=== PATIENT | female | born 1955 | race Caucasian/White ===

== ENCOUNTER 2019-11-02 17:14 | Emergency (ER) | payer MEDICARE, OTHER, SELFPAY ==
[2019-11-02 17:26] VITALS: BP 142/106; PULSE 72; RESP 18; TEMP 36.5; O2SAT 96; BMI 32.9
--- NOTE | 2019-11-02 17:38 | W.ED.ABDPA2 ---
HPI - Abdominal Pain General: Chief Complaint: Abdominal Pain Stated Complaint: ABD PAIN Time Seen by Provider: 11/02/19 17:35 History of Present Illness: Associated Symptoms: Denies chills, constipation, diarrhea, dysuria, fever(s), hematochezia, hematuria, nausea and vomiting Review of Systems Const: Denies: fever(s), chills or fatigue Eyes: Denies: change in vision or eye discomfort ENMT: Denies: throat pain, odynophagia, nasal discharge or nasal congestion Card: Denies: chest pain, palpitations, edema, swelling of feet/ankles, dyspnea on exertion or orthopnea Resp: Denies: dyspnea, productive cough or non-productive cough GI: Denies: abdominal pain, nausea, vomiting, diarrhea, constipation or hematochezia : Denies: flank pain, dysuria or hematuria Musc: Denies: neck pain, back pain or extremity swelling Skin/Breast: Denies: rash or new lesions Neuro: Denies: headache(s), numbness in extremities or weakness in extremities Physical Exam Const: COMMON NORMALS: patient oriented x3 HENMT: COMMON NORMALS: normocephalic HEAD & SCALP: normocephalic MOUTH: Normal oral and palatal mucosa present THROAT: posterior oropharynx normal and uvula midline Neck/C-Spine: COMMON NORMALS: supple GENERAL: Yes normal visual inspection Resp: COMMON NORMALS: normal respiratory effort, No retractions, No use of accessory muscles and clear to auscultation bilaterally AUSCULTATION: clear to auscultation bilaterally Cardio: COMMON NORMALS: regular rate, regular rhythm, S1 normal heart sound present, S2 normal heart sound present, No gallops present (Cardio), No clicks present (Cardio), No murmurs present (Cardio) and Peripheral pulses 2+ throughout RATE: regular rate RHYTHM: regular rhythm HEART SOUNDS: S1 normal heart sound present and S2 normal heart sound present PERIPHERAL PULSES: Peripheral pulses 2+ throughout GI: COMMON NORMALS: Normal to inspection, nondistended, normoactive bowel sounds present, Soft to palpation, non-tender and no masses PALPATION: Yes Soft to palpation : COMMON NORMALS: Yes no CVA tenderness BLADDER/KIDNEY EXAM: Yes no CVA tenderness Back/Pelvis: COMMON NORMALS: no CVA tenderness Neuro: COMMON NORMALS: patient oriented x3 GAIT: Yes Normal gait present Course Vital Signs: Vital signs: Vital Signs Temperature 97.7 F 11/02/19 17:26 Pulse Rate 72 11/02/19 17:26 Respiratory Rate 18 11/02/19 17:26 Blood Pressure 142/106 11/02/19 17:26 Pulse Oximetry 96 11/02/19 17:26 Coding Level of Care Code ED Child And Family Services Worker for Juhi Velez
[2019-11-02 17:50] VITALS: BP 125/91; PULSE 68; RESP 18; O2SAT 95
[2019-11-02 17:50] LABS: Add Urine Microscopic? NO
[2019-11-02 17:54] LABS: Basophils # 0.1 10^3/uL (0.0-0.1); Basophils % 0.8 %; Eosinophils # 0.1 10^3/uL (0.0-0.8); Eosinophils % 1.2 %; Hematocrit 43.4 % (37.0-47.0); Hemoglobin 13.7 g/dL (11.5-15.3); Lymphocytes # 2.5 10^3/uL (0.8-4.8); Lymphocytes % 29.4 %; Mean Corpuscular HGB Conc 31.6 g/dL (30.0-36.0); Mean Corpuscular Volume 91.8 fL (81-99); Monocytes # 0.6 10^3/uL (0.2-0.9); Monocytes % 7.1 %; Neutrophils # 5.14 10^3/uL (1.8-7.7); Neutrophils % 61.1 %; Nucleated Red Blood Cells % 0 %; Platelet Count 325 10^3/cmm (130-400); Red Blood Count 4.73 10^6/uL (4.1-5.3); Red Cell Distribution Width 12.5 % (12.1-15.1); White Blood Count 8.4 10^3/uL (4.0-10.0)
[2019-11-02 18:04] LABS: Alanine Aminotransferase 15 U/L (0-33); Albumin Level 4.5 g/dL (3.5-5.2); Alkaline Phosphatase 76 IU/L (35-105); Aspartate Amino Transferase 27 U/L (0-32); Blood Urea Nitrogen 15 mg/dL (8-23); Calcium 9.6 mg/dL (8.5-10.5); Carbon Dioxide 23 mmol/L (22-29); Chloride 102 mmol/L (98-107); Globulin 3.1 g/dL (1.3-4.6); Glucose 86 mg/dL (65-115); Lipase 43 U/L (13-60); Osmolality Calculated 278 mOsm/kg (285-295); Sodium 136 mmol/L (136-145); Total Bilirubin 0.4 mg/dL (0.15-1.2); Total Protein 7.6 g/dL (6.6-8.7)
--- NOTE | 2019-11-02 18:04 | US_ITS ---
WS: [id number] EXAM: RIGHT UPPER QUADRANT ULTRASOUND DATE OF EXAMINATION: 11/02/2019, 1850 hours COMPARISON: None. HISTORY: 64 years old with right upper quadrant abdominal pain. FINDINGS: Visualized pancreas is normal in appearance. Upper abdominal aorta is normal in caliber. Liver echotexture is normal without evidence of mass lesion. Liver is not appreciably enlarged. Carolyn l venous flow is demonstrated by color flow and spectral Doppler with flow toward the liver. The gallbladder lumen is poorly visualized. Appears to be full of stones. No definite wall thickening . Common bile duct diameter is estimated at 11 mm in maximum transverse caliber. Considered dilated. No definite stone is seen within the visualized portions of the common bile duct but considered abnorma l for this age of patient. Imaging of the abdomen with the CT recommended for further delineation for possible common bile duct stone. The right kidney is estimated at 9.3 x 4.8 x 4.1 cm in size. Cortical thickness and echotexture are n ormal. No mass or obstructive uropathy is seen. US/US gall bladder [id number] IMPRESSION: Gallbladder appears to be full of stones. Dilated common bile duct 11 mm in tra nsverse caliber. No stone within the duct seen within the limits of the examina tion but the distal common bile duct not visualized. CT of the abdomen recommen ded to evaluate for possible common bile duct stone.
--- NOTE | 2019-11-02 18:06 | W.ED.ABDPA2 ---
HPI - Abdominal Pain General: Chief Complaint: Abdominal Pain Stated Complaint: ABD PAIN Time Seen by Provider: 11/02/19 17:35 Source: patient Mode of arrival: ambulatory Limitations: no limitations History of Present Illness: HPI narrative: Dennise is a 64-year-old female who states she has had abdominal pain over the last 2 days. She states in her right upper quadrant is sharp in nature. It is worse with movement. She states improved with rest. Her pain is currently a 7 out of 10. She denies any fevers. Denies any vomiting. MD elicited complaint: abdominal pain Pertinent past history: none Onset (ago): day(s) Pain Consistency: constant Location: RUQ Severity: moderate Quality: stabbing Exacerbating factors: movement Relieving factors: rest Associated Symptoms: Denies chills, dysuria and fever(s) Review of Systems Const: Denies: fever(s), chills, body aches or change in appetite Eyes: Denies: blurry vision or eye discomfort ENMT: Denies: throat pain or dental pain Card: Denies: chest pain Resp: Denies: dyspnea GI: Reports: abdominal pain : Denies: dysuria Musc: Denies: neck pain or back pain Skin/Breast: Denies: rash Neuro: Denies: headache(s) Psych: Denies: depression Raudel/Lymph: Denies: easy bruising All/Imm: Denies: urticaria Physical Exam Const: COMMON NORMALS: no acute distress, patient oriented x3 and healthy appearing HENMT: COMMON NORMALS: normocephalic and atraumatic HEAD & SCALP: normocephalic and atraumatic Eye: COMMON NORMALS: Equal, round and reactive pupils present and EOMs intact bilaterally PUPIL: Yes Equal, round and reactive pupils present Neck/C-Spine: COMMON NORMALS: full ROM and supple Chest: COMMONS NORMALS: normal inspection of the chest and normal palpation of entire chest wall Resp: COMMON NORMALS: normal respiratory effort, No retractions, No use of accessory muscles and clear to auscultation bilaterally AUSCULTATION: clear to auscultation bilaterally Cardio: COMMON NORMALS: regular rate, regular rhythm and No murmurs present (Cardio) RATE: regular rate RHYTHM: regular rhythm GI: COMMON NORMALS: Normal to inspection, nondistended, normoactive bowel sounds present, Soft to palpation and no masses PALPATION: Yes Soft to palpation and Yes Tenderness to palpation present (GI) Details: RUQ Extremity: COMMON NORMALS: normal to inspection and full ROM Neuro: COMMON NORMALS: patient oriented x3, moves all extremities and no focal motor deficits Psych: COMMON NORMALS: mental status grossly normal, Normal thought process present and cooperative THOUGHT PROCESS: Normal thought process present Skin: COMMON NORMALS: no rashes or lesions noted and no wounds GENERAL SKIN EXAM: no rashes or lesions noted Course Vital Signs: Vital signs: Vital Signs Temperature 97.7 F 11/02/19 17:26 Pulse Rate 69 11/02/19 18:16 Respiratory Rate 17 11/02/19 18:54 Blood Pressure 116/75 11/02/19 18:16 Pulse Oximetry 97 11/02/19 18:54 MDM - Abdominal Pain MDM Narrative: Medical decision making narrative: Patient presents with abdominal pain. She does have gallstones. She had dilated bile duct on ultrasound but no signs of blockages her bilirubin and liver enzymes are normal. Her pain is much improved her abdominal exam at discharge is benign. She is to follow-up with Dr. Baez. Patient is to return to ER if worsening. She understands and agrees to plan. Lab Data: Labs: Lab Results 11/02/19 11/02/19 11/02/19 Range/Units 17:32 17:33 17:33 WBC 8.4 (4.0-10.0) 10^3/ uL RBC 4.73 (4.1-5.3) 10^6/u L Hgb 13.7 (11.5-15.3) g/dL Hct 43.4 (37.0-47.0) % MCV 91.8 (81-99) fL MCH 29.0 (28.0-34.0) pg MCHC 31.6 (30.0-36.0) g/dL RDW 12.5 (12.1-15.1) % Plt Count 325 (130-400) 10^3/c mm MPV 10.0 (7.4-10.4) fL Neut % (Auto) 61.1 % Lymph % (Auto) 29.4 % Woodruff % (Auto) 7.1 % Eos % (Auto) 1.2 % Baso % (Auto) 0.8 % Neut # (Auto) 5.14 (1.8-7.7) 10^3/u L Lymph # (Auto) 2.5 (0.8-4.8) 10^3/u L Woodruff # (Auto) 0.6 (0.2-0.9) 10^3/u L Eos # (Auto) 0.1 (0.0-0.8) 10^3/u L Baso # (Auto) 0.1 (0.0-0.1) 10^3/u L Nucleated RBC % (a uto) 0 % Nucleated RBCs # 0.0 /100WBC Sodium 136 (136-145) mmol/L Potassium 4.4 (3.5-5.1) mmol/L Chloride 102 (98-107) mmol/L Carbon Dioxide 23 (22-29) mmol/L Anion Gap 15.4 (5-19) BUN 15 (8-23) mg/dL Creatinine 0.8 (0.5-0.9) mg/dL GFR Calculation 72.0 L (90-130) mL/min Glucose 86 (65-115) mg/dL Calculated Osmolal ity 278 L (285-295) mOsm/k g Calcium 9.6 (8.5-10.5) mg/dL Total Bilirubin 0.4 (0.15-1.2) mg/dL AST 27 (0-32) U/L ALT 15 (0-33) U/L Alkaline Phosphata se 76 (35-105) IU/L Total Protein 7.6 (6.6-8.7) g/dL Albumin 4.5 (3.5-5.2) g/dL Globulin 3.1 (1.3-4.6) g/dL Lipase 43 (13-60) U/L Urine Color Yellow (Yellow) Urine Appearance Clear (CLEAR) Urine pH 5 (5-7) Ur Specific Gravit y 1.015 (1.005-1.030) Urine Protein Neg (Negative) Urine Glucose (UA) Norm (Normal) Urine Ketones Negative (Negative) Urine Blood Neg (Negative) Urine Nitrate Negative (Negative) Urine Bilirubin Neg (NEGATIVE) Urine Urobilinogen Norm (Negative) mg/dL Ur Leukocyte Cesilia ase Negative (Negative) Imaging Data ^: CT Abd/Pel: Attestation: I personally reviewed and interpreted this imaging study as follows: Radiologist's impression: [facility] [address] [place] [address] CT Scan Report Signed Patient: Dennise Zaragoza Unit #: [id number] : 1955 Age/Sex: 64 / F ADM Date: 11/02/19 Loc: ER Room/Bed: Attending Dr: Ordering Provider/Ordering MD: Nataliya Del Cid MD Date of Service: 11/02/19 Procedure(s): CT abdomen pelvis wo con [id number] Accession Number(s): [id number] Report Number: [id number] PROCEDURE INFORMATION: Exam: CT Abdomen And Pelvis Without Contrast Exam date and time: 11/02/2019 7:26 PM Age: 64 years old Clinical indication: Nausea; Abdominal pain; Localized; Right upper quadrant (ruq); Prior surgery; Surgery type: Hyst, appy, bowel; Additional info: Abd pain TECHNIQUE: Imaging protocol: Computed tomography of the abdomen and pelvis without contrast. Radiation optimization: All CT scans at this facility use at least one of these dose optimization techniques: automated exposure control; mA and/or kV adjustment per patient size (includes targeted exams where dose is matched to clinical indication); or iterative reconstruction. COMPARISON: US gall bladder [id number] 11/02/2019 6:49 PM RADIATION DOSE METRICS: Total DLP (mGy-cm): 869.88 FINDINGS: Lungs: Limited assessment lung bases fails to reveal evidence of active cardiopulmonary process. Liver: Unremarkable. No mass. Gallbladder and bile ducts: Status post cholecystectomy. Pancreas: Normal. No ductal dilation. Spleen: Normal. No splenomegaly. Adrenals: Normal. No mass. Kidneys and ureters: Normal. No hydronephrosis. Stomach and bowel: Heavy fecal residue throughout the colonic tract consistent with constipation. Nonobstructive bowel pattern. No visible adynamic or reactive ileus. Hiatal hernia. Appendix: Status post appendectomy. Intraperitoneal space: Unremarkable. No free air. No significant fluid collection. Vasculature: Unremarkable. No abdominal aortic aneurysm. Lymph nodes: Unremarkable. No enlarged lymph nodes. Bladder: Unremarkable as visualized. Reproductive: Status post hysterectomy. Bones/joints: No visible evidence of acute osseous abnormality. Antecedent appearing mild superior endplate deformities T12, L3, and L5. Facet arthrosis. Osteopenia. Soft tissues: Unremarkable. CT/CT abdomen pelvis wo con [id number] IMPRESSION: 1. Currently no visible evidence of acute abdominal or pelvic pathologic process. 2. Constipation. Discharge Plan Discharge Patient Disposition: Home Clinical Impression: Abdominal pain Qualifiers: Abdominal location: epigastric Qualified Code(s): R10.13 - Epigastric pain Gallstone Qualifiers: Cholecystitis presence: without cholecystitis Biliary obstruction: without biliary obstruction Qualified Code(s): K80.20 - Calculus of gallbladder without cholecystitis without obstruction Condition: Stable Prescriptions: [place] 5-325 mg tablet 1 tab PO Q6H PRN (Reason: pain) Qty: 14 RF: 0 ondansetron 4 mg tablet,disintegrating 4 mg PO Q6H PRN (Reason: nausea and vomiting) Qty: 14 RF: 0 No Action fluoxetine 40 mg capsule 40 mg PO DAILY RF: 0 clonazepam 0.5 mg tablet 0.5 mg PO BID PRN (Reason: Anxiety) RF: 0 Discharge Orders: Discharge Order (Routine); Ordered 11/02/19 Ordered By: Nataliya Del Cid Referrals: Erwin Baez MD [Physician] - 1-3 days Manuel Ge Jr, MD [Primary Care Provider] - Discharge Diet: Advance as tolerated Discharge Activity: Resume usual activity Patient Instructions: Abdominal Pain (ED) Coding Level of Care Code ED Chief Payroll Clerk for Chg Fwd Exam Comprehensive
[2019-11-02 18:08] LABS: Glucose Urine UA Norm (Normal); Protein Urine Neg (Negative); Specific Gravity, Urine 1.015 (1.005-1.030); Urine Appearance Clear (CLEAR); Urine Color Yellow (Yellow); pH Urine 5 (5-7)
[2019-11-02 18:09] LABS: Bilirubin Urine Neg (NEGATIVE); Blood Urine Neg (Negative); Ketones Urine Negative (Negative); Leukocyte Esterase Urine Negative (Negative); Nitrate Urine Negative (Negative); Urobilinogen Urine Norm (Negative)
[2019-11-02 18:11] VITALS: RESP 18; O2SAT 97
[2019-11-02] MEDS: ondansetron 2 mg/ML SDV 2 mL 4 MG IVP (18:11)
[2019-11-02] MEDS: morphine 4 mg/mL SDV 1 mL IVP ×2 (18:11→18:54)
[2019-11-02 18:14] LABS: Anion Gap 15.4 (5-19); Potassium 4.4 mmol/L (3.5-5.1)
[2019-11-02 18:16] VITALS: BP 116/75; PULSE 69; RESP 18; O2SAT 97
[2019-11-02 18:54] VITALS: RESP 17; O2SAT 97
--- NOTE | 2019-11-02 19:06 | CTR_ITS ---
PROCEDURE INFORMATION: Exam: CT Abdomen And Pelvis Without Contrast Exam date and time: 11/02/2019 7:26 PM Age: 64 years old Clinical indication: Nausea; Abdominal pain; Localized; Right upper quadrant (ruq); Prior surgery; Surgery type: Hyst, appy, bowel; Additional info: Abd pain TECHNIQUE: Imaging protocol: Computed tomography of the abdomen and pelvis without contrast. Radiation optimization: All CT scans at this facility use at least one of these dose optimization techniques: automated exposure control; mA and/or kV adjustment per patient size (includes targeted exams where dose is matched to clinical indication); or iterative reconstruction. COMPARISON: US gall bladder [id number] 11/02/2019 6:49 PM RADIATION DOSE METRICS: Total DLP (mGy-cm): 869.88 FINDINGS: Lungs: Limited assessment lung bases fails to reveal evidence of active cardiopulmonary process. Liver: Unremarkable. No mass. Gallbladder and bile ducts: Status post cholecystectomy. Pancreas: Normal. No ductal dilation. Spleen: Normal. No splenomegaly. Adrenals: Normal. No mass. Kidneys and ureters: Normal. No hydronephrosis. Stomach and bowel: Heavy fecal residue throughout the colonic tract consistent with constipation. Nonobstructive bowel pattern. No visible adynamic or reactive ileus. Hiatal hernia. Appendix: Status post appendectomy. Intraperitoneal space: Unremarkable. No free air. No significant fluid collection. Vasculature: Unremarkable. No abdominal aortic aneurysm. Lymph nodes: Unremarkable. No enlarged lymph nodes. Bladder: Unremarkable as visualized. Reproductive: Status post hysterectomy. Bones/joints: No visible evidence of acute osseous abnormality. Antecedent appearing mild superior endplate deformities T12, L3, and L5. Facet arthrosis. Osteopenia. Soft tissues: Unremarkable. CT/CT abdomen pelvis con [id number] IMPRESSION: 1. Currently no visible evidence of acute abdominal or pelvic pathologic process. 2. Constipation. Radiation Dose CTDIVOL = (mGy): DLP = 869.88 (mGy-cm)
[2019-11-02 20:55] VITALS: BP 128/74; PULSE 85; RESP 17; O2SAT 98
--- NOTE | 2019-11-03 15:28 | DCPLANNER ---
trailer park manager had message to schedule a follow up appointment for patient with general surgery. trailer park manager called [facility], spoke with Codi, a follow up appointment was scheduled for October at 11:15 with . Clinic will call patient with appointment information.
--- NOTE | 2019-12-17 08:09 | DCPLANNER ---
Patient had a follow up appointment scheduled for 11.12.19 with [facility] - patient did attend the appointment.
== END 2019-11-02 20:55 | disposition home or self-care (01) ==
PROVIDERS: Physician Assistant; Emergency Provider Emergency Medicine; PCP Family Medicine
DX: R10.13 Epigastric pain (principal); K80.20 Calculus of gallbladder without cholecystitis without obstruction
CPT/HCPCS: 12345; 74176; 76705; 80053; 81003; 83690; 85025; 87040; 96374; 96375; 96376; 99282; 99284; J2270; J2405

== ENCOUNTER 2019-11-13 12:30 | Outpatient (CLI) | payer MEDICARE, OTHER, SELFPAY ==
--- NOTE | 2019-11-13 12:30 | MR_ITS ---
WS: [id number] MRI/MRCP OF THE ABDOMEN WITHOUT GADOLINIUM ENHANCEMENT TECHNIQUE: Thin and thick slab MRCP, Axial T2, Coronal MRCP, Axial Dual Echo, and Axial 2-D Fiesta imaging was obtained. Coronal 2-D Fiesta imaging. CLINICAL INFORMATION: right upper quadrant pain COMPARISON: CT abdomen pelvis November 02, 2019 FINDINGS: Prior cholecystectomy. Liver is normal in appearance. Normal portal vein and splenic vein. Dilatation common bile duct with normal tapering at the pancreatic head and consistent with normal physiologic postcholecystectomy dilatation. Common bile duct measures 9.8 mm at the pancreatic head. No intrahepatic biliary ductal dilatation. Normal pancreatic duct. Normal pancreatic parenchyma. Norm al portal vein and splenic vein. Normal caliber abdominal aorta. No hydronephrosis in either kidney. Moderate esophageal hiatal hernia with partial intrathoracic stom ach. No abdominal lymphadenopathy. MR/MR MRCP [id number] Impression: 1. Prior postoperative changes cholecystectomy. 2. No evidence of choledocholithiasis. Normal tapering of the common bile duct distally. No intraluminal filling defects. 3. Pancreatic head is normal in appearance. No evidence of pancreatic mass or lesion. Normal pancreatic duct. 4. No hydronephrosis in either kidney. 5. Moderate esophageal hiatal hernia with partial intrathoracic stomach.
== END 2019-11-13 12:31 | disposition home or self-care (01) ==
LOC: RADSHAW 12:33
PROVIDERS: PCP Family Medicine; Visit Provider Surgery
DX: R10.11 Right upper quadrant pain (principal); K44.9 Diaphragmatic hernia without obstruction or gangrene
CPT/HCPCS: 74181

== ENCOUNTER 2020-07-01 09:37 | Outpatient (CLI) | payer MEDICARE, SELFPAY ==
--- NOTE | 2020-07-01 09:43 | MM_ITS ---
WS: [id number] Bilateral screening digital mammogram, 07/01/2020 Clinical Data: SCREENING Comparison: 02/19/2018, 08/12/2015, 07/21/2014, 07/20/2013, 07/29/2012, 07/17/2012, 06/21/2011. Findings: The breast parenchymal pattern shows fat replacement. No spiculated masses or clustered calcification s are seen. There are no secondary signs of carcinoma. MM/[place] [id number] Impression: 1. Negative bilateral mammogram unchanged. 2. Recommend annual screening mammograms. BIRADS: 1-Negative FOLLOW UP: 1 Year Follow-up The CAD furnace checker was used.
== END 2020-07-01 09:38 | disposition home or self-care (01) ==
LOC: RADSHAW 09:40
PROVIDERS: PCP Family Medicine; Visit Provider Family Medicine
DX: Z12.31 Encounter for screening mammogram for malignant neoplasm of breast (principal)
CPT/HCPCS: 77067

== ENCOUNTER → 2021-10-23 12:02 | Outpatient (BNVA) | payer MEDICARE, SELFPAY | PROVIDERS: PCP Family Medicine; Visit Provider Registered Nurse Neonatal Intensive Care | DX: U07.1 COVID-19 (principal); Z20.822 Contact with and (suspected) exposure to COVID-19 | CPT/HCPCS: 87426 ==

== ENCOUNTER 2021-12-26 10:55 | Outpatient (CLI) | payer MEDICARE, SELFPAY ==
--- NOTE | 2021-12-26 11:18 | XRR_ITS ---
PROCEDURE INFORMATION: Exam: XR Chest Exam date and time: 12/26/2021 11:37 AM Age: 66 years old Clinical indication: Sternal or substernal pain; Prior surgery; Surgery type: Abdominal adhesions; Patient HX: Pain under diaphragm, and upper chest; Additional info: Pain, upper abdomen and lower chest pain chronically. TECHNIQUE: Imaging protocol: Radiologic exam of the chest. Views: 2 views. COMPARISON: CR XR chest 2V* [id number] 11/27/2018 2:42 PM FINDINGS: Lungs: Unremarkable. No consolidation. Pleural spaces: Unremarkable. No pleural effusion. No pneumothorax. Heart/Mediastinum: There is a hiatal hernia similar to prior Bones/joints: Generalized osteopenia is seen. There is compression fracture superior endplate T11 and T10 vertebral bodies. Organs: Cholecystectomy is seen. XR/XR chest 2V* [id number] IMPRESSION: 1. No acute chest abnormalities. 2. Hiatal hernia 3. Cholecystectomy.
== END 2021-12-26 10:56 | disposition home or self-care (01) ==
LOC: RAD 10:59
PROVIDERS: Visit Provider Family Medicine Adult Medicine
DX: R07.9 Chest pain, unspecified (principal); K44.9 Diaphragmatic hernia without obstruction or gangrene; K66.0 Peritoneal adhesions (postprocedural) (postinfection); G62.9 Polyneuropathy, unspecified; R10.10 Upper abdominal pain, unspecified; G89.29 Other chronic pain; R53.83 Other fatigue
CPT/HCPCS: 71046; 80053; 84443; 85025; 85651; 86140

== ENCOUNTER → 2021-12-28 08:43 | Day surgery (SDC) | payer MEDICARE, SELFPAY ==
[2021-12-28] VITALS (9 sets, daily range): BP systolic 131–155; BP diastolic 74–94; PULSE 68–88; RESP 18; TEMP 36.4–36.7; O2SAT 96–98
[2021-12-28 09:15] LABS: Hematocrit 28.4 % (37.0-47.0); Hemoglobin 7.8 g/dL (11.5-15.3)
[2021-12-28] MEDS: sodium chloride 0.9% (100 ml) 100 ML 10 ML ×2 (10:20→12:29)
== END ==
PROVIDERS: Visit Provider Family Medicine Adult Medicine
DX: D64.9 Anemia, unspecified (principal)
CPT/HCPCS: 36415; 36430; 85014; 85018; 86850; 86900; 86920; P9040

== ENCOUNTER → 2022-01-30 10:49 | Outpatient (BNVA) | payer MEDICARE, SELFPAY | PROVIDERS: Visit Provider Family Medicine Adult Medicine | DX: D64.9 Anemia, unspecified (principal); R53.83 Other fatigue; F41.9 Anxiety disorder, unspecified; F32.A Depression, unspecified; G62.9 Polyneuropathy, unspecified; K59.00 Constipation, unspecified; Q43.8 Other specified congenital malformations of intestine; F41.8 Other specified anxiety disorders | CPT/HCPCS: 80053; 84443; 85025 ==

== ENCOUNTER → 2022-02-01 15:23 | Outpatient (BNVA) | payer MEDICARE, SELFPAY | PROVIDERS: PCP Family Medicine Adult Medicine; Visit Provider Family Medicine Adult Medicine | DX: D64.9 Anemia, unspecified (principal); Q43.8 Other specified congenital malformations of intestine; K59.00 Constipation, unspecified | CPT/HCPCS: 82271; 82274; G0328 ==

== ENCOUNTER → 2022-05-15 10:23 | Outpatient (BNVA) | payer MEDICARE, SELFPAY | PROVIDERS: PCP Family Medicine Adult Medicine; Visit Provider Family Medicine Adult Medicine | DX: R53.83 Other fatigue (principal); D64.9 Anemia, unspecified; F41.9 Anxiety disorder, unspecified; F32.A Depression, unspecified; G62.9 Polyneuropathy, unspecified; G47.00 Insomnia, unspecified | CPT/HCPCS: 85025 ==

== ENCOUNTER → 2022-08-22 09:25 | Outpatient (BNVA) | payer MEDICARE, SELFPAY | PROVIDERS: PCP Family Medicine Adult Medicine; Visit Provider Family Medicine Adult Medicine | DX: R53.83 Other fatigue (principal); M79.601 Pain in right arm; M79.602 Pain in left arm; G89.29 Other chronic pain; M79.604 Pain in right leg; M79.605 Pain in left leg; G62.9 Polyneuropathy, unspecified; N39.41 Urge incontinence; R10.10 Upper abdominal pain, unspecified; D50.9 Iron deficiency anemia, unspecified; R63.5 Abnormal weight gain | CPT/HCPCS: 80053; 84443; 85025; 85651 ==

== ENCOUNTER → 2022-08-23 14:09 | Outpatient (BNVA) | payer MEDICARE, SELFPAY | PROVIDERS: PCP Family Medicine Adult Medicine; Visit Provider Family Medicine Adult Medicine | DX: R53.83 Other fatigue (principal); M79.601 Pain in right arm; M79.602 Pain in left arm; G89.29 Other chronic pain; M79.604 Pain in right leg; M79.605 Pain in left leg; G62.9 Polyneuropathy, unspecified; N39.41 Urge incontinence; R10.10 Upper abdominal pain, unspecified; D50.9 Iron deficiency anemia, unspecified; R63.5 Abnormal weight gain | CPT/HCPCS: 81000 ==

== ENCOUNTER → 2022-10-18 16:29 | Outpatient (BNVA) | payer MEDICARE, SELFPAY | PROVIDERS: PCP Family Medicine Adult Medicine; Visit Provider Family Medicine Adult Medicine | DX: G62.9 Polyneuropathy, unspecified (principal); M79.601 Pain in right arm; M79.602 Pain in left arm; G89.29 Other chronic pain; M79.604 Pain in right leg; M79.605 Pain in left leg; D64.9 Anemia, unspecified; K59.00 Constipation, unspecified; Q43.8 Other specified congenital malformations of intestine | CPT/HCPCS: 82270 ==

== ENCOUNTER → 2022-12-12 07:24 | Outpatient (BNVA) | payer MEDICARE, SELFPAY | PROVIDERS: PCP Family Medicine Adult Medicine; Referring Provider Family Medicine Adult Medicine; Visit Provider Psychiatry & Neurology Neurology | DX: M54.2 Cervicalgia (principal); G62.9 Polyneuropathy, unspecified; M79.601 Pain in right arm; M79.602 Pain in left arm; M79.604 Pain in right leg; M79.605 Pain in left leg; R53.83 Other fatigue; R20.2 Paresthesia of skin | CPT/HCPCS: 99203 ==

== ENCOUNTER → 2023-01-03 12:21 | Outpatient (BNVA) | payer MEDICARE, SELFPAY | PROVIDERS: PCP Family Medicine Adult Medicine; Referring Provider Family Medicine Adult Medicine; Visit Provider Psychiatry & Neurology Neurology | DX: G56.01 Carpal tunnel syndrome, right upper limb (principal); G62.89 Other specified polyneuropathies | CPT/HCPCS: 95911 ==

== ENCOUNTER 2023-01-08 16:09 | Outpatient (CLI) | payer MEDICARE, SELFPAY ==
--- NOTE | 2023-01-08 16:45 | MR_ITS ---
WS: [id number] MRI CERVICAL SPINE NONCONTRAST TECHNIQUE: Sagittal T1, T2 and STIR imaging. Axial T2, gradient, and fiesta imaging. CLINICAL INFORMATION: M79.601 - Pain in right arm COMPARISON: None. FINDINGS: Straightening of the normal cervical doses. Mild spondylitic changes. Disc bulging worse at C3-C4 C4- C5 and C5-C6 with small disc osteophyte protrusions. Cord signal is normal. C2-C3: Mild RIGHT and no significant LEFT foraminal narrowing. Mild facet arthropathy. C3-C4: Disc osteophyte complex with endplate ridging. Moderate facet arthropathy worse on the LEFT. M ild central canal stenosis. Moderate LEFT and mild RIGHT bony foraminal narrowing. C4-C5: Disc osteophyte complex with endplate ridging. Mild central canal stenosis. Moderate facet art hropathy. Moderate RIGHT greater than LEFT bony foraminal narrowing. C5-C6: Disc osteophyte complex with endplate ridging. Uncovertebral joint hypertrophy. Moderate to se rubi bilateral bony foraminal narrowing. Mild central canal stenosis. C6-C7: Disc osteophyte complex with endplate ridging. Uncovertebral joint hypertrophy. Spinal canal i s patent. Moderate to severe bilateral bony foraminal narrowing. C7-T1: Slight anterolisthesis. Mild LEFT and no significant RIGHT foraminal narrowing. Spinal canal i s patent. Visualized brain stem structures: Normal. Prevertebral soft tissues: Normal. IMPRESSION: 1. Straightening of the normal cervical lordosis. Mild spondylitic changes. 2. Mild central canal stenosis C3-C4 C4-C5 and C5-C6. 3. Moderate to severe bony foraminal narrowing worse at LEFT C3-C4, RIGHT C4-C5, bilateral C5-6 wors e on the RIGHT, and bilateral C6-7 worse on the LEFT.
== END 2023-01-08 16:10 | disposition home or self-care (01) ==
LOC: RAD 16:10
PROVIDERS: PCP Family Medicine Adult Medicine; Visit Provider Psychiatry & Neurology Neurology
DX: M48.02 Spinal stenosis, cervical region (principal); G62.9 Polyneuropathy, unspecified; G89.29 Other chronic pain; M79.601 Pain in right arm; M79.602 Pain in left arm; M79.604 Pain in right leg; M79.605 Pain in left leg
CPT/HCPCS: 72141

== ENCOUNTER → 2023-01-16 09:47 | Outpatient (BNVA) | payer MEDICARE, SELFPAY | PROVIDERS: PCP Family Medicine Adult Medicine; Visit Provider Family Medicine Adult Medicine | DX: R20.2 Paresthesia of skin (principal); M79.601 Pain in right arm; M79.602 Pain in left arm; R53.83 Other fatigue; G62.9 Polyneuropathy, unspecified; D50.9 Iron deficiency anemia, unspecified; G89.29 Other chronic pain; M79.604 Pain in right leg; M79.605 Pain in left leg; G47.00 Insomnia, unspecified; E55.9 Vitamin D deficiency, unspecified | CPT/HCPCS: 82306; 82607; 82746; 83735; 83921; 84155; 84165; 85651; 86140; 86160; 86162; 86235; 86255; 86334; 86376; 86431 ==

== ENCOUNTER → 2023-02-20 12:33 | Outpatient (BNVA) | payer MEDICARE, SELFPAY | PROVIDERS: PCP Family Medicine Adult Medicine; Visit Provider Psychiatry & Neurology Neurology | DX: M50.30 Other cervical disc degeneration, unspecified cervical region (principal); G89.29 Other chronic pain; M79.601 Pain in right arm; M79.602 Pain in left arm; M79.604 Pain in right leg; M79.605 Pain in left leg | CPT/HCPCS: 99212 ==

== ENCOUNTER 2023-02-28 09:16 | Outpatient (CLI) | payer MEDICARE, SELFPAY ==
--- NOTE | 2023-02-28 09:23 | MM_ITS ---
WS: [id number] Bilateral screening 3D tomosynthesis digital mammogram, 02/28/2023 Clinical Data: Z12.39 - Encounter for other screening for malignant neop... Comparison: 07/01/2020, 02/19/2018, 08/12/2015, 07/21/2014, 07/20/2013, 07/29/2012, 07/17/2012, 06/21/2011. Findings: The breast parenchymal pattern shows fat replacement. No spiculated masses or clustered calcification s are seen. There are no secondary signs of carcinoma. Impression: 1. Negative bilateral mammogram unchanged. 2. Recommend annual screening mammograms. MM/[place] [id number] BIRADS: 1-Negative FOLLOW UP: 1 Year Follow-up The CAD quotation checker was used.
== END 2023-02-28 09:17 | disposition home or self-care (01) ==
LOC: RAD 09:16
PROVIDERS: PCP Family Medicine Adult Medicine; Visit Provider Family Medicine Adult Medicine
DX: Z12.31 Encounter for screening mammogram for malignant neoplasm of breast (principal)
CPT/HCPCS: 77063; 77067

== ENCOUNTER 2023-03-08 11:29 | Outpatient (CLI) | payer MEDICARE, SELFPAY ==
--- NOTE | 2023-03-08 11:30 | MR_ITS ---
WS: [id number] MRI BRAIN WITHOUT CONTRAST HISTORY: M79.601 - Pain in right arm COMPARISON: None available. TECHNIQUE: Diffusion imaging, multiplanar T1, T2 and FLAIR imaging obtained. No evidence for acute infarct or hemorrhage. Romero-white matter differentiation is normal. Increased T 2 and FLAIR signal adjacent to the RIGHT lateral ventricle. Otherwise no significant ischemic disease . No prior infarct. There is mild diffuse volume loss. Volume loss resulting in mild increase in the subarachnoid and sub dural spaces. No hemorrhage. No inferior displacement of cerebellar tonsils. The sella turcica and pituitary gland are unremarkabl e. Dural venous sinuses and [place] of Acevedo demonstrate no abnormality on this unenhanced studies. Paranasal sinuses: Clear. Mastoid air cells: Normal. Calvarium and scalp: Intact. IMPRESSION: 1. No acute infarct. 2. Mild diffuse volume loss is symmetric. No hippocampal atrophy. 3. Very minimal small vessel ischemic changes adjacent to the RIGHT lateral ventricle.
== END 2023-03-08 11:30 | disposition home or self-care (01) ==
LOC: RAD 11:29
PROVIDERS: PCP Family Medicine Adult Medicine; Visit Provider Psychiatry & Neurology Neurology
DX: M79.601 Pain in right arm (principal); M79.602 Pain in left arm; G89.29 Other chronic pain; M79.604 Pain in right leg; M79.605 Pain in left leg; G62.9 Polyneuropathy, unspecified
CPT/HCPCS: 70551

== ENCOUNTER → 2023-04-02 14:13 | Outpatient (BNVA) | payer MEDICARE, SELFPAY | PROVIDERS: PCP Family Medicine Adult Medicine; Visit Provider Orthopaedic Surgery | DX: M47.22 Other spondylosis with radiculopathy, cervical region; M48.02 Spinal stenosis, cervical region | CPT/HCPCS: 99204 ==

== ENCOUNTER → 2023-05-06 09:52 | Outpatient (BNVA) | payer MEDICARE, SELFPAY | PROVIDERS: PCP Family Medicine Adult Medicine; Visit Provider Anesthesiology Pain Medicine | DX: M48.02 Spinal stenosis, cervical region (principal); M47.22 Other spondylosis with radiculopathy, cervical region | CPT/HCPCS: 99204 ==

== ENCOUNTER → 2023-06-04 09:17 | Outpatient (BNVA) | payer MEDICARE, SELFPAY | PROVIDERS: PCP Family Medicine Adult Medicine; Visit Provider Anesthesiology Pain Medicine | DX: M54.9 Dorsalgia, unspecified (principal); M47.22 Other spondylosis with radiculopathy, cervical region | CPT/HCPCS: 99214 ==

== ENCOUNTER → 2023-07-17 09:14 | Outpatient (BNVA) | payer MEDICARE, SELFPAY | PROVIDERS: PCP Family Medicine Adult Medicine; Visit Provider Anesthesiology Pain Medicine | DX: M47.22 Other spondylosis with radiculopathy, cervical region; M54.50 Low back pain, unspecified | CPT/HCPCS: 99214 ==

== ENCOUNTER → 2023-07-31 14:28 | Outpatient (BNVA) | payer MEDICARE, SELFPAY | PROVIDERS: PCP Family Medicine Adult Medicine; Visit Provider Psychiatry & Neurology Neurology | DX: M50.30 Other cervical disc degeneration, unspecified cervical region (principal); M79.601 Pain in right arm; M79.602 Pain in left arm; G89.29 Other chronic pain; M79.604 Pain in right leg; M79.605 Pain in left leg | CPT/HCPCS: 99212 ==

== ENCOUNTER → 2023-08-01 12:18 | Outpatient (BNVA) | payer MEDICARE, SELFPAY | PROVIDERS: PCP Family Medicine Adult Medicine; Visit Provider Anesthesiology Pain Medicine | DX: M47.812 Spondylosis without myelopathy or radiculopathy, cervical region (principal) | CPT/HCPCS: 64490; 64491; 64492; J3490 ==

== ENCOUNTER → 2023-08-21 10:31 | Outpatient (BNVA) | payer MEDICARE, SELFPAY | PROVIDERS: PCP Family Medicine Adult Medicine; Visit Provider Anesthesiology Pain Medicine | DX: M47.22 Other spondylosis with radiculopathy, cervical region | CPT/HCPCS: 99214 ==

== ENCOUNTER → 2023-08-22 07:41 | Outpatient (BNVA) | payer MEDICARE, SELFPAY | PROVIDERS: PCP Family Medicine Adult Medicine; Visit Provider Orthopaedic Surgery | DX: M54.2 Cervicalgia (principal) | CPT/HCPCS: 99213 ==

== ENCOUNTER 2024-02-20 14:55 | Outpatient (CLI) | payer MEDICARE, SELFPAY ==
--- NOTE | 2024-02-20 15:00 | XRR_ITS ---
PROCEDURE INFORMATION: Exam: XR Chest Exam date and time: 02/20/2024 3:07 PM Age: 69 years old Clinical indication: Cough; Patient HX: Dysphagia and difficulty swallowing x 2 mo; History of uterine cancer TECHNIQUE: Imaging protocol: Radiologic exam of the chest. Views: 2 views. COMPARISON: CR XR chest 2V* [id number] 12/26/2021 11:37 AM FINDINGS: Lungs: Lungs are clear bilaterally. Pleural spaces: No pleural effusion. No pneumothorax. Heart/Mediastinum: Stable large hiatal hernia. Cardiac silhouette and mediastinal contours are unremarkable. Bones/joints: Stable old, mild compression deformities of T10, T11, and T12. Stable degenerative changes in the spine. Organs: Stable findings consistent with a previous cholecystectomy with surgical clips in the right upper quadrant. XR/XR chest 2V* [id number] IMPRESSION: 1. No acute cardiopulmonary process. 2. Incidental/nonacute findings are listed in the report.
== END 2024-02-20 14:56 | disposition home or self-care (01) ==
LOC: RAD 14:57
PROVIDERS: PCP Family Medicine Adult Medicine; Visit Provider Family Medicine
DX: R05.9 Cough, unspecified (principal); K44.9 Diaphragmatic hernia without obstruction or gangrene; M51.34 Other intervertebral disc degeneration, thoracic region
CPT/HCPCS: 71046

== ENCOUNTER 2024-03-02 14:03 | Outpatient (CLI) | payer MEDICARE, SELFPAY ==
--- NOTE | 2024-03-02 14:07 | MM_ITS ---
WS: [id number] BILATERAL 3D TOMOSYNTHESIS DIGITAL SCREENING MAMMOGRAPHY WITH CAD CLINICAL INFORMATION: SCREENING HISTORY: Screening mammogram. No current complaints. COMPARISON: 2022 TECHNIQUE: Bilateral CC and MLO views. FINDINGS: Scattered fibroglandular densities bilaterally. No suspicious focal mass, asymmetry, calcifications, or architectural distortion. No evidence of malignancy. Vascular calcification. Incidental punctate a nd lucent centered calcifications. MM/MM scr tomosynthesis [id number] IMPRESSION: DENSITY: There are scattered areas of fibroglandular density. BI-RADS: 2 - Benign. FOLLOW UP: 1 Year Follow-up Recommend return to annual screening mammography.
== END 2024-03-02 14:04 | disposition home or self-care (01) ==
LOC: RAD 14:05
PROVIDERS: PCP Family Medicine; Visit Provider Family Medicine
DX: Z12.31 Encounter for screening mammogram for malignant neoplasm of breast (principal); R92.323 Mammographic fibroglandular density, bilateral breasts; R92.1 Mammographic calcification found on diagnostic imaging of breast
CPT/HCPCS: 77063; 77067

== ENCOUNTER 2024-03-03 10:50 | Outpatient (CLI) | payer MEDICARE, SELFPAY | END 2024-03-03 10:51 | disposition home or self-care (01) | PROVIDERS: PCP Family Medicine; Visit Provider Family Medicine | DX: R05.9 Cough, unspecified (principal); R94.2 Abnormal results of pulmonary function studies | CPT/HCPCS: 94010; 94726; 94729 ==

== ENCOUNTER 2024-05-20 10:00 | Outpatient (CLI) | payer OTHER, SELFPAY ==
--- NOTE | 2024-05-20 10:03 | FL_ITS ---
WS: [id number] FL barium swallow modifd 80804 REASON FOR EXAM: Pharyngoesoph. dysphagia FLUOROSCOPY TIME: 2min [id number] # OF SPOT FILMS: 0 TECHNIQUE: Examination was supervised by the speech therapy department. The patient was examined in the sitting upright lateral projection. The swallowing of multiple consistencies of barium was monitored fluoroscopically and video recorded. FINDINGS: No penetration or aspiration. There was impedance of the transit of the barium tablet through the esophagus and into the stomach. This appears to be due to impaired thoracic esophageal motility. There is a gastric hernia. Uncertain if paraesophageal or hiatal type. FL/FL barium swallow modifd 71746 IMPRESSION: No aspiration. Probable esophageal dysmotility and gastric fundus on certain type. Follow-up esophagram recommended.
--- NOTE | 2024-05-20 10:03 | CT_ITS ---
WS: [id number] CT NECK WITHOUT CONTRAST HISTORY: DYSPHAGIA,PHARYNGOESOPHAGEAL PHASE TECHNIQUE: Contiguous 2 mm axial images are performed through the neck without intravenous contrast. Sagittal and coronal reformats are also submitted. All CT scans at [facility] use at least one of these dose optimization techniques: automated exposure control; mA and/or kV adjustment per patient size (includes targeted exams where dose is matched to clinical indication); or iterative reconstruction. CONTRAST: CONTRAST: None DLP: 175.61 mGy.cm COMPARISON: None available. Nasopharynx, oropharynx, hypopharynx and larynx are unremarkable. No soft tissue masses or abnormal enhancement. Torus tubarius and fossa of Rosenmuller and parapharyngeal fat are normal. No significant lymphadenopathy is identified. Thyroid gland and salivary glands are normally enhancing with no masses. Facet joint arthropathy throughout the cervical spine. No fractures. Visualized portions of the skull base demonstrate no abnormalities. Orbits and globes are within normal limits. No soft tissue masses. Visualized paranasal sinuses and mastoid air cells are normal. Dependent changes and motion artifact. CT/CT neck con [id number] IMPRESSION: Unremarkable noncontrast neck CT. No adenopathy or neck mass.
== END 2024-05-20 10:01 | disposition home or self-care (01) ==
LOC: RAD 10:02
PROVIDERS: PCP Family Medicine; Visit Provider Otolaryngology
DX: R13.14 Dysphagia, pharyngoesophageal phase (principal); R05.3 Chronic cough; K21.9 Gastro-esophageal reflux disease without esophagitis; M47.892 Other spondylosis, cervical region; R93.89 Abnormal findings on diagnostic imaging of other specified body structures; K46.9 Unspecified abdominal hernia without obstruction or gangrene
CPT/HCPCS: 70490; 74230; 92611

== ENCOUNTER → 2024-07-31 12:24 | Outpatient (BNVA) | payer MEDICARE, SELFPAY | PROVIDERS: PCP Family Medicine; Visit Provider Family Medicine | DX: D50.9 Iron deficiency anemia, unspecified (principal); K44.9 Diaphragmatic hernia without obstruction or gangrene; K21.9 Gastro-esophageal reflux disease without esophagitis; R06.81 Apnea, not elsewhere classified; R10.10 Upper abdominal pain, unspecified; G89.29 Other chronic pain; F41.9 Anxiety disorder, unspecified; F32.A Depression, unspecified; G62.89 Other specified polyneuropathies; Z13.6 Encounter for screening for cardiovascular disorders | CPT/HCPCS: 80053; 80061; 82607; 83540; 84443; 85025; 86592 ==

== ENCOUNTER 2025-01-05 14:25 | Outpatient (CLI) | payer MEDICARE, SELFPAY ==
--- NOTE | 2025-01-05 14:30 | XR_ITS ---
WS: [id number] SCREENING DEXA SCAN [employer] CLINICAL INFORMATION: postmenopausal COMPARISON: None. FINDINGS: The L1-L4 bone mineral density measures 0.932 g/cm2. This corresponds to a T score score of -2.1 and Z score of -0.5. Left femoral neck bone mineral density measures 0.972 g/cm2. This corresponds to a T score of -0.3 and Z score of 1.1. Right femoral neck bone mineral density measures 0.942 g/cm2. This corresponds to a T score -0.5of and Z score of 0.9. Mean femoral neck bone mineral density measures 0.957 g/cm2. This corresponds to a T score of -0.4 and Z score of 1.0. XR/XR DEXA axial skeleton* [id number] IMPRESSION: Osteopenia lumbar spine. Normal bone mineralization femoral necks. Patient's FRAX calculated 10 year probability for major osteoporotic fracture i s 10.0% and osteoporotic hip fracture is 1.6%.
== END 2025-01-05 14:26 | disposition home or self-care (01) ==
LOC: RAD 14:26
PROVIDERS: PCP Family Medicine; Visit Provider Family Medicine
DX: Z13.820 Encounter for screening for osteoporosis (principal); Z78.0 Asymptomatic menopausal state; M85.88 Other specified disorders of bone density and structure, other site
CPT/HCPCS: 77080

== ENCOUNTER → 2025-03-01 14:17 | Outpatient (BNVA) | payer MEDICARE, SELFPAY | PROVIDERS: PCP Family Medicine; Visit Provider Family Medicine | DX: N39.41 Urge incontinence (principal); R51.9 Headache, unspecified; R42 Dizziness and giddiness; F32.A Depression, unspecified; F41.9 Anxiety disorder, unspecified; G89.29 Other chronic pain; R10.10 Upper abdominal pain, unspecified | CPT/HCPCS: 80053; 82607; 84443; 85025; 86140; 87077; 87086; 87184 ==

== ENCOUNTER 2025-03-03 11:15 | Outpatient (CLI) | payer MEDICARE, SELFPAY ==
--- NOTE | 2025-03-03 11:21 | MM_ITS ---
WS: [email or web address] Bilateral screening 3D tomosynthesis digital mammogram, 03/03/2025 11:32 AM Clinical Data: SCREENING Comparison: 03/02/2024, 02/28/2023, 07/01/2020, 02/19/2018, 08/12/2015, 07/21/2014, 07/20/2013, 07/29/2012, 07/17/2012, 06/21/2011. Findings: No spiculated masses or clustered calcifications are seen. There are no secondary signs of carcinoma. MM/MM scr tomosynthesis [id number] Impression: Negative bilateral mammogram unchanged. Recommend annual screening mammograms. BIRADS: 1 - Negative. FOLLOW UP: 1 Year Follow-up DENSITY: There are scattered areas of fibroglandular density. The CAD auto design checker was used
== END 2025-03-03 11:16 | disposition home or self-care (01) ==
LOC: RAD 11:16
PROVIDERS: PCP Family Medicine; Visit Provider Family Medicine
DX: Z12.31 Encounter for screening mammogram for malignant neoplasm of breast (principal); R92.323 Mammographic fibroglandular density, bilateral breasts
CPT/HCPCS: 77063; 77067

== ENCOUNTER 2025-03-16 16:19 | Outpatient (CLI) | payer MEDICARE, SELFPAY ==
--- NOTE | 2025-03-16 16:30 | CT_ITS ---
WS: [email or web address] CTA HEAD TECHNIQUE: Contrast enhanced CTA of the head with coronal and sagittal reformatted images and maximum intensity projection (MIP) images. NASCET criteria utilized. CLINICAL INFORMATION: headaches, fam hx of cerebral aneurysm COMPARISON: CT head 2016 DLP: 1650.[address] scans at [facility] use at least one of these dose optimization techniques: automated exposure control; mA and/or kV adjustment per patient size (includes targeted exams where dose is matched to clinical indication); or iterative reconstruction. FINDINGS: No evidence intracranial hemorrhage or mass effect. Ventricular system and basal cisterns are patent. No hydrocephalus. Paranasal sinuses and mastoid air cells are well aerated. Normal posterior nasopharynx. INTRACRANIAL CTA: LEFT dominant distal vertebral artery. Smaller but patent distal RIGHT vertebral artery. Basilar artery is patent. Normal vascularity to the [employer] territory bilaterally. Both ICAs are patent at the skull base. Normal vascularity to the ASIF and MCA territories bilaterally. No evidence of proximal flow limiting stenosis or aneurysm. Patent anterior communicating artery. CT/CT angio head [id number] IMPRESSION: Normal intracranial CTA
[2025-03-16] MEDS: iohexol 350 mg/mL 500 mL Btl (per mL) IV (16:47)
== END 2025-03-16 16:20 | disposition home or self-care (01) ==
LOC: RAD 16:21
PROVIDERS: PCP Family Medicine; Visit Provider Family Medicine
DX: R51.9 Headache, unspecified (principal); Z82.49 Family history of ischemic heart disease and other diseases of the circulatory system
CPT/HCPCS: 70496